=== PATIENT | male | born 1970 | race Hispanic/Latino ===

== ENCOUNTER 2017-01-30 18:45 | Emergency (ER) | payer OTHER, MEDICARE ==
[~2017-01-30] VITALS: Ht 180.3 cm; Wt 99.8 kg
[~2017-01-30 18:45] MED LIST: ANTIFUNGAL30 G1 TOP; AUGMENTIN 875-1 EACH PO; FLOMAX0.4 M1 PO; GABAPENTIN300 M2 PO; GLYBURIDE2.5 M1 PO; IBUPROFEN600 M1 PO; IBUPROFEN800 M1 PO; JANUVIA100 M1 PO; METFORMIN HCL1000 M1 PO; PERCOCET 5-3251 EACH PO; TAMSULOSIN HCL0.4 M1 PO; TRAMADOL HCL50 M1 PO; ZOFRAN ODT4 M1 PO
--- NOTE | 2017-01-30 19:30 | ED GI/GU/ABDOMINAL COMPLAINT ---
History of Present Illness General Chief Complaint: Male Genitourinary Problems Stated Complaint: MALE Source: patient, old records Exam Limitations: no limitations Vital Signs & Intake/Output Vital Signs & Intake/Output Vital Signs Date Time Temp Pulse Resp B/P Pulse O2 O2 Flow FiO2 Ox Delivery Rate 01/30 2151 97.2 98 20 163/52 98 Room Air 01/30 2103 97.4 90 20 165/71 99 Room Air 01/30 1943 Room Air 01/30 1913 99.1 90 18 155/83 98 Room Air Allergies Coded Allergies: NO KNOWN ALLERGIES (06/06/16) Reconcile Medications Glyburide 2.5 MG TABLET 1 TAB PO BID DM (Reported) Metformin HCl 1,000 MG TABLET 1 TAB PO BID DIABETES (Reported) Sitagliptin Phosphate (Januvia) 100 MG TABLET 1 TAB PO DAILY DM (Reported) Triage Note: PT TO ED C/O BURNING WITH URINATION FOR 3 DAYS. HAD LEFT FLANK PAIN 3 DAYS AGO, NOW HAS PAIN ACROSS LOW ABDOMEN. PMH OF KIDNEY STONES AND NIDDM. Triage Nurses Notes Reviewed? yes HPI: Patient presents with three-day history of dysuria and increased urinary frequency. Last night he developed pain to his left flank. This morning the pain in his left flank was on however he has been having pain in the suprapubic area. The pain is constant. The pain is burning in nature. There is no radiation. The pain is constant. There is no aggravating or mitigating factors. He rates the pain as 10 out of 10. Patient states that he has a history of kidney stones and had similar symptoms in the past with kidney stones. Patient denies any nausea or vomiting. There are no fevers or chills. He has not noticed any hematuria. Past History Travel History Traveled to [place] past 21 day No Medical History Any Pertinent Medical History? see below for history Neurological: NONE EENT: NONE Cardiovascular: NONE Respiratory: NONE Gastrointestinal: NONE Hepatic: NONE Renal: nephrolithiasis Musculoskeletal: NONE Psychiatric: NONE Endocrine: NIDDM Blood Disorders: NONE Cancer(s): NONE [employer]/Reproductive: NONE Surgical History Surgical History: hernia repair-inguinal Psychosocial History What is your primary language Yi Tobacco Use: Never used ETOH Use: denies use Illicit Drug Use: denies illicit drug use Family History Hx Contributory? No Review of Systems Review of Systems Constitutional: Reports: no symptoms. EENTM: Reports: no symptoms. Respiratory: Reports: no symptoms. Cardiovascular: Reports: no symptoms. GI: Reports: see HPI, abdominal pain. Genitourinary: Reports: see HPI, dysuria, frequency. Musculoskeletal: Reports: see HPI, back pain. Skin: Reports: no symptoms. Neurological/Psychological: Reports: no symptoms. Hematologic/Endocrine: Reports: no symptoms. Immunologic/Allergic: Reports: no symptoms. All Other Systems: Reviewed and Negative Physical Exam Physical Exam General Appearance: well developed/nourished, alert, awake, moderate distress Head: atraumatic, normal appearance Eyes: Bilateral: PERRL, EOMI. Ears, Nose, Throat, Mouth: hearing grossly normal, moist mucous membrane Neck: normal inspection, supple, full range of motion Respiratory: normal breath sounds, chest non-tender, no respiratory distress, lungs clear Cardiovascular: regular rate/rhythm, normal peripheral pulses Gastrointestinal: normal bowel sounds, soft, no organomegaly, tenderness ( BILATERAL LOWER QUADRANT), NO REBOUND OR GUARDING Back: normal inspection, normal range of motion, NO cva TENDERNESS Extremities: normal range of motion Neurologic/Psych: no motor/sensory deficits, awake, alert, oriented x 3, normal gait, normal mood/affect Skin: intact, normal color, warm/dry Core Measures ACS in differential dx? No Severe Sepsis Present: No Septic Shock Present: No Progress Differential Diagnosis: appendicitis, diverticulitis, epididymitis, ischemic bowel, inflamm bowel dis, prostatitis, PUD/GERD, ureterolithiasis, urinary retention, UTI/pyelo Plan of Care: Orders Procedure Date/time Status COMPREHENSIVE METABOLIC PANEL 01/30 1951 Complete CBC WITHOUT DIFFERENTIAL 01/30 1951 Complete ACETONE 01/30 1951 Complete URINALYSIS 01/31 1920 Complete Laboratory Tests 01/30/170: Anion Gap 11, Estimated GFR > 60, BUN/Creatinine Ratio 15.0, Glucose 245 H, Calcium 8.7, Total Bilirubin 0.5, AST 28, ALT 65, Alkaline Phosphatase 88, Total Protein 6.6, Albumin 3.9, Globulin 2.7, Albumin/Globulin Ratio 1.4, CBC w Diff NO MAN DIFF REQ, RBC 5.01, MCV 85.2, MCH 28.1, RDW 13.9, MPV 8.2, Gran % 46.8, Lymphocytes % 34.6, Monocytes % 14.0 H, Eosinophils % 4.0, Basophils % 0.6, Absolute Granulocytes 2.8, Absolute Lymphocytes 2.1, Absolute Monocytes 0.8 H, Absolute Eosinophils 0.2, Absolute Basophils 0, PUBS MCHC 33.0, Acetone Level NEGATIVE 01/30/17 193: Urine Color YEL, Urine Clarity HAZY H, Urine pH 6.5, Ur Specific [place] 1.015, Urine Protein NEG, Urine Ketones TRACE H, Urine Nitrite NEG, Urine Bilirubin NEG, Urine Urobilinogen 0.2, Ur Leukocyte Esterase NEG, Ur Microscopic SEDIMENT EXAMINED, Urine RBC 1-3, Urine WBC 15-25 H, Ur Epithelial Cells FEW, Urine Bacteria FEW H, Urine Hemoglobin TRACE-INTACT H, Urine Glucose >=1000 H Initial ED EKG: none Departure Departure Disposition: HOME OR SELF CARE Condition: Stable Clinical Impression Primary Impression: Lower abdominal pain, unspecified Referrals: ISABELLE LOPEZ,SETH ORDONEZ (PCP/Family) Additional Instructions: Drink plenty of fluids. Return if symptoms worsen or for any concerns. Departure Forms: Customer Survey General Discharge Information Prescriptions: Current Visit Scripts Oxycodone HCl/Acetaminophen (Percocet 5-325 MG Tablet) 1-2 TAB PO Q6P PRN PAIN #20 TAB
--- NOTE | 2017-01-30 21:09 | CT SCAN REPORT ---
EXAMINATION: CT ABDOMEN AND PELVIS WITHOUT CONTRAST CLINICAL INFORMATION: Left flank pain. Rule out kidney stone. COMPARISON: CT abdomen and pelvis of 08/05/2016 and 06/07/2016. TECHNIQUE: Multidetector volumetric imaging was performed from the superior aspect of the liver through the pubic symphysis. Sagittal and coronal reformatted images were obtained on the technologist's workstation. DLP: 591.46 mGy-cm. FINDINGS: LUNG BASES: The visualized lung bases are unremarkable. LIVER, GALLBLADDER, AND BILIARY TREE: The liver is normal in size and shape. There is low-attenuation of the liver parenchyma which could be related to underlying steatosis. No focal hepatic lesion is noted within the limits of noncontrast study. No biliary ductal dilatation. The gallbladder is significantly contracted, however there is no evidence of radiopaque gallstones or obvious pericholecystic inflammatory changes. PANCREAS: Unremarkable. SPLEEN: Unremarkable. ADRENAL GLANDS: Unremarkable. KIDNEYS AND URETERS: The kidneys are normal in size, shape and attenuation. There is no evidence of hydroureteronephrosis or perinephric stranding. Multiple nonobstructing left renal calculi are again noted including a 0.6 x 0.9 cm calculus in the mid kidney and at least 4-5 calculi in the lower pole ranging from 0.3 cm to a largest one measuring 0.7 cm. No evidence of radiopaque ureteral calculi. BLADDER: Partially distended, however, unremarkable without evidence of radiopaque stones, wall thickening or soft tissue mass. GASTROINTESTINAL TRACT: The small and large bowel are unremarkable. The appendix is unremarkable. The stomach is partially distended and unremarkable. ABDOMINAL WALL: No significant hernia is appreciated. LYMPH NODES: No evidence of pathologically enlarged lymph nodes. VASCULAR: Unremarkable. PELVIC VISCERA: The prostate is normal in size, however there are coarse prostatic calcifications. Normal seminal vesicles. OSSEOUS STRUCTURES: Unremarkable. IMPRESSION: 1. Multiple nonobstructing left renal calculi are overall not significantly changed compared to previous study of 08/05/2016. No hydroureteronephrosis or perinephric stranding. 2. No evidence of radiopaque right urinary tract calculi or bladder calculi. 3. No additional acute abnormalities are identified to explain patient's symptoms. 4. Suspected hepatic steatosis.
[2017-01-30 21:35] LABS: ABSOLUTE BASOPHIL COUNT 0 /CUMM (0.0-0.2); ABSOLUTE EOSINOPHIL COUNT 0.2 /CUMM (0.0-0.7); ABSOLUTE GRANULOCYTE CT 2.8 /CUMM (1.4-6.5); ABSOLUTE LYMPH COUNT 2.1 /CUMM (1.2-3.4); ABSOLUTE MONOCYTE COUNT 0.8 /CUMM (0.10-0.60); BASOPHIL % 0.6 % (0.0-2.0); GRANULOCYTE % 46.8 % (42.2-75.2); HEMATOCRIT 42.7 % (42-52); MEAN CORPUSCULAR HGB 28.1 PG (27.0-31.0); MEAN CORPUSCULAR VOLUME 85.2 FL (80.0-94.0); MEAN PLATELET VOLUME 8.2 FL (7.4-10.4); PLATELET COUNT 225 /CUMM (130-400); RBC DISTRIBUTION WIDTH 13.9 % (11.5-14.5); RED BLOOD CELL CT 5.01 /CUMM (4.70-6.10)
[2017-01-30 21:51] VITALS: BP 163/52
[2017-01-30] MEDS ORDERED: PERCOCET 5-3251 EACH PO (22:50)
== END 2017-01-30 22:58 ==
LOC: ERH 18:45
PROVIDERS: Emergency Medicine
DX: R10.31 Right lower quadrant pain (principal); R10.32 Left lower quadrant pain
CPT/HCPCS: 74176; 81001; 96374; 96375; J1885

== ENCOUNTER 2018-04-16 03:22 | Emergency (ER) | payer OTHER, MEDICARE ==
[~2018-04-16] VITALS: Ht 180.3 cm; Wt 102.1 kg
[~2018-04-16 03:22] MED LIST changes: +GLIPIZIDE5 M2 PO; +MELOXICAM7.5 M1 PO; +MOBIC15 M1 PO; +NYSTATIN15 G1 TOP; +PRAVASTATIN SOD20 M2 PO
[2018-04-16 04:19] LABS: ABSOLUTE BASOPHIL COUNT 0.1 /CUMM (0.0-0.2); ABSOLUTE EOSINOPHIL COUNT 0.3 /CUMM (0.0-0.7); ABSOLUTE GRANULOCYTE CT 2.4 /CUMM (1.4-6.5); ABSOLUTE LYMPH COUNT 3.4 /CUMM (1.2-3.4); ABSOLUTE MONOCYTE COUNT 0.9 /CUMM (0.10-0.60); BASOPHIL % 0.7 % (0.0-2.0); EOSINOPHIL % 4.4 % (0-5); HEMATOCRIT 46.6 % (42-52); MEAN CORPUSCULAR HGB CONC 32.9 G/DL (33.0-37.0); MEAN PLATELET VOLUME 8.5 FL (7.4-10.4); PLATELET COUNT 298 /CUMM (130-400); RBC DISTRIBUTION WIDTH 14.3 % (11.5-14.5); RED BLOOD CELL CT 5.48 /CUMM (4.70-6.10); WHITE BLOOD CELL COUNT 7.1 /CUMM (4.8-10.8)
--- NOTE | 2018-04-16 04:26 | ED GI/GU/ABDOMINAL COMPLAINT ---
See Addendum History of Present Illness General Chief Complaint: Abdominal Pain/Flank Pain Stated Complaint: PT C/C LT FLANK PAIN HX KIDNEY STONES Source: patient Exam Limitations: no limitations Vital Signs & Intake/Output Vital Signs & Intake/Output Vital Signs Date Time Temp Pulse Resp B/P B/P Pulse O2 O2 Flow FiO2 Mean Ox Delivery Rate 04/16 0607 98.0 88 18 142/88 98 Room Air 04/16 0340 97.7 95 16 175/111 98 Room Air Room Air Allergies Coded Allergies: NO KNOWN ALLERGIES (UNKNOWN 04/16/18) Reconcile Medications Glipizide 10 MG TABLET 1 TAB PO BID DM (Reported) Ketorolac Tromethamine 10 MG TABLET 1 TAB PO Q6P PRN KIDNEY STONE PAIN PATIENT RECEIVED iv KETOROLAC IN THE EMERGENCY DEPARTMENT Meloxicam 7.5 MG TABLET 1 TAB PO DAILY PAIN/INFLAMMATION (Reported) Meloxicam (Mobic) 15 MG TABLET 1 TAB PO DAILY PRN pain Metformin HCl 1,000 MG TABLET 1 TAB PO BID DIABETES (Reported) Nystatin 100,000 UNIT/GRAM CREAM..G. 1 GARRY TOP AD PRN GROIN (Reported) apply to affected area(s) Oxycodone HCl/Acetaminophen (Percocet 5-325 MG Tablet) 5 MG-325 MG TABLET 1 TAB PO Q6P PRN pain Pravastatin Sodium 20 MG TABLET 1 TAB PO DAILY CHOLESTEROL (Reported) Sitagliptin Phosphate (Januvia) 100 MG TABLET 1 TAB PO DAILY DM (Reported) Tamsulosin HCl 0.4 MG CAP.ER.24H 2 CAP PO DAILY (Reported) Triage Note: 47YO MALE TO RM 6 W/CO LOW ABD PAIN THAT RADIATES TO R GROIN AND FLANK THAT HAS BEEN PRESENT INTERMITTENTLY X WEEKS BUT WORSENED TONITE. ALSO STATES HE HAS HX OF KIDNEY STONES AND PASSED "A GRAIN OF SAND LAST WEEK" Triage Nurses Notes Reviewed? yes HPI: Patient presents for evaluation of a severe left flank pain that began one week ago. Patient states he has been passing small kidney stones but it hasn't seemed to have relieved the left flank pain he is currently experiencing. He states he has the feeling like he has to urinate but can't. He denies any associated fever or cold symptoms or hematuria. Past History Travel History Traveled to [place] past 21 day No Medical History Any Pertinent Medical History? 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 No Review of Systems Review of Systems Constitutional: Reports: no symptoms. EENTM: Reports: no symptoms. Respiratory: Reports: no symptoms. Cardiovascular: Reports: no symptoms. GI: Reports: no symptoms. Genitourinary: Reports: see HPI. Musculoskeletal: Reports: no symptoms. Skin: Reports: no symptoms. Neurological/Psychological: Reports: no symptoms. Hematologic/Endocrine: Reports: no symptoms. Immunologic/Allergic: Reports: no symptoms. All Other Systems: Reviewed and Negative Physical Exam Physical Exam Gastrointestinal: see below Comments: Gen.: Well-nourished, well-developed, no acute respiratory distress. Head: Normocephalic, atraumatic. Eyes: Normal inspection bilaterally Ears: Normal inspection bilaterally Nose: Normal inspection Throat/mouth : Moist mucosa Neck: Supple, full range of motion, no goiter Heart: Regular rate and rhythm, no murmurs rubs or gallops Lungs: Clear to auscultation bilaterally with normal air entry Chest: Nontender Back: Normal range of motion, mild left flank tenderness to percussion Abdomen: Soft, mild left lower quadrant abdominal tenderness without rebound or guarding, nondistended, normal bowel sounds Extremities: Normal range of motion grossly, equal radial pulses, no cyanosis clubbing or edema Neurologic: Cranial nerves grossly intact, speech is clear Skin: warm and dry Psychiatric: Calm, cooperative, no apparent delusions or hallucinations Core Measures ACS in differential dx? No Sepsis Present: No Sepsis Focused Exam Completed? No Progress Differential Diagnosis: renal colic, pyelonephritis/UTI, musculoskeletal strain, diverticulitis Plan of Care: Orders Procedure Date/time Status CT ABD & PELVIS W/O IV CONTRAS 04/16 0426 Active URINALYSIS 04/16 357 Complete COMPREHENSIVE METABOLIC PANEL 04/16 357 Complete CBC WITHOUT DIFFERENTIAL 04/16 357 Complete Current Medications Sig/Pricila Start time Last Medication Dose Stop Time Status Admin Oxycodone/ 1 TAB ONCE ONE 04/16 0630 UNVr Acetaminophen 04/16 0631 (Percocet) Laboratory Tests 04/16/18 0500: Urinalysis LIGHT H, Urine Color YEL, Urine Clarity HAZY H, Urine pH 6.0, Ur Specific [place] 1.020, Urine Protein NEG, Urine Ketones NEG, Urine Nitrite NEG, Urine Bilirubin NEG, Urine Urobilinogen 0.2, Ur Leukocyte Esterase TRACE H, Ur Microscopic SEDIMENT EXAMINED, Urine RBC 10-15 H, Urine WBC 5-10 H, Ur Epithelial Cells FEW, Urine Crystals , Urine Bacteria RARE H, Urine Mucus MOD H, Urine Hemoglobin TRACE-INTACT H, Urine Glucose 250 H 04/16/18 0345: Anion Gap 13, Estimated GFR > 60, BUN/Creatinine Ratio 17.5, Glucose 209 H, Calcium 9.8, Total Bilirubin 0.5, AST 25, ALT 49, Alkaline Phosphatase 105, Total Protein 7.6, Albumin 4.5, Globulin 3.1, Albumin/Globulin Ratio 1.5, CBC w Diff NO MAN DIFF REQ, RBC 5.48, MCV 85.0, MCH 28.0, MCHC 32.9 L, RDW 14.3, MPV 8.5, Gran % 34.0 L, Lymphocytes % 48.2, Monocytes % 12.7 H, Eosinophils % 4.4, Basophils % 0.7, Absolute Granulocytes 2.4, Absolute Lymphocytes 3.4, Absolute Monocytes 0.9 H, Absolute Eosinophils 0.3, Absolute Basophils 0.1 Initial ED EKG: none Comments: 04/16/2018 6:21:16 AM Chidi is feeling much better. He states he no longer has the left flank pain and that the pain seems to have migrated down into the suprapubic region. He has gone to the bathroom repeatedly and has had trouble "passing his urine". His clinical presentation is consistent with his prior history of renal colic. He has repeatedly declined to have a CAT scan done due to the radiation exposure. Stone seems to be progressing swiftly and I feel he is stable for outpatient management with pain medication and follow up with his urologist. Departure Departure Disposition: HOME OR SELF CARE Condition: Stable Clinical Impression Primary Impression: Renal colic on left side Referrals: Dain LOPEZ,Candy Marin (PCP/Family) Additional Instructions: Ketorolac as prescribed for pain, add Percocet if necessary. Follow-up with your urologist within 48 hours if the stone has not passed. Return if any concerns or sudden worsening. Thank you for choosing the [facility] for your care. It was a pleasure to serve you today. Fernando Owen M.D. [facility] Departure Forms: Customer Survey General Discharge Information Prescriptions: Current Visit Scripts Ketorolac Tromethamine 1 TAB PO Q6P PRN KIDNEY STONE PAIN #16 TAB PATIENT RECEIVED iv KETOROLAC IN THE EMERGENCY DEPARTMENT Oxycodone HCl/Acetaminophen (Percocet 5-325 MG Tablet) 1 TAB PO Q6P PRN pain #10 TAB
[2018-04-16] MEDS ORDERED: KETOROLAC TROME10 M1 PO (06:25)
[2018-04-16] MEDS ORDERED: PERCOCET 5-3251 EACH PO (06:25)
--- NOTE | 2018-04-16 08:30 | ULTRASOUND REPORT ---
EXAMINATION: US SCROTUM CLINICAL INFORMATION: 47-year-old male patient with right testicular pain. COMPARISON: Scrotal ultrasound on 02/22/2016. (Microlithiasis. Otherwise normal). TECHNIQUE: A sonogram of the scrotum was performed assessing walker-scale appearance and color Doppler flow. Spectral analysis and Doppler interrogation was performed. FINDINGS: RIGHT: Right testicle measures 4.2 x 2.3 x 3.3 cm, volume 22 mL. Parenchymal echotexture is normal. No focal testicular parenchymal lesions are visualized. Again, scattered microlithiasis is present. Normal symmetric arterial and venous intratesticular flow is visualized. Right epididymal head is normal in size. No right hydrocele or varicocele is seen. LEFT: Left testicle measures 3.7 x 2.0 x 3.2 cm, volume 16.8 mL. Parenchymal echotexture is normal. Again, scattered microlithiasis is present. No focal testicular parenchymal lesions are visualized. Normal symmetric arterial and venous intratesticular flow is visualized. Left epididymal head is normal in size. A small left varicocele is present. IMPRESSION: No evidence of testicular torsion. Scattered bilateral microlithiasis.
[2018-04-16 10:28] VITALS: BP 141/70
== END 2018-04-16 10:40 ==
LOC: ERH 03:22
PROVIDERS: Emergency Medicine
DX: N23 Unspecified renal colic (principal)
CPT/HCPCS: 81001; 96374; 96375; 96376; J0131; J1200; J1885; J2405